=== PATIENT | male | born 1985 | race Caucasian/White ===

== ENCOUNTER 2018-12-16 16:23 | Observation (INO) ==
--- NOTE | 2018-12-16 16:55 | XRay Report ---
SINGLE VIEW CHEST CLINICAL HISTORY: Atypical chest pain. FINDINGS: An AP, portable, upright chest radiograph is obtained. No prior studies are available for c omparison at the time of dictation. The cardiomediastinal silhouette is unremarkable. The lungs and pleural spaces are clear. No pneumothorax is seen. The bony thorax is grossly intact. IMPRESSION: No active disease in the chest. Electronically signed by: Krunal Cedillo M.D. 12/16/2018 4:54 PM
[2018-12-16 17:36] LABS: Basophils # (auto) 0.04 K/uL (0-0.2); Basophils % (auto) 0.4 %; Eosinophils # (auto) 0.22 K/uL (0-0.5); Eosinophils % (auto) 2.1 %; Hematocrit (blood only) 48.6 % (42-52); Hemoglobin 16.6 g/dL (14.0-18.0); Immature Granulocytes # (auto) 0.06 K/uL (0.00-0.02); Immature Granulocytes % (auto) 0.6 %; Lymphocytes # (auto) 2.54 K/uL (1.2-3.4); Lymphocytes % (auto) 24.3 %; Mean Corpuscular Hgb Conc 34.2 g/dL (32-36); Mean Corpuscular Volume 86.6 fL (80-100); Mean Platelet Volume 10.5 fL (7.4-10.4); Monocytes # (auto) 0.73 K/uL (0.11-0.59); Neutrophils # (auto) 6.88 K/uL (1.4-6.5); Neutrophils % (auto) 65.6 %; Platelet Count 250 K/uL (130-400); RDW Standard Deviation 41.4 fL (36.4-46.3); Red Blood Count 5.61 M/uL (4.7-6.1); White Blood Count 10.47 K/uL (4.8-10.8)
[2018-12-16 17:50] LABS: Albumin Level 3.8 gm/dl (3.4-5.0); BUN Creatinine Ratio 13.5 (10-20); Bilirubin,Total 0.2 mg/dl (0.2-1); Calcium 8.9 mg/dl (8.5-10.1); Creatinine Clr Calc Pharmacy 96.1 ml/min; Est GFR (African American) 100.3; Est GFR (Non-African American) 86.5; Globulin 3.7 gm/dl (2.5-4.0); Potassium 3.6 mmol/L (3.5-5.1); Total Protein 7.5 gm/dl (6.4-8.2); Troponin I 0.112 ng/ml (0-0.045)
[2018-12-16] MEDS ORDERED: ASPIRIN CHEW 324 MG PO STA (17:52)
[2018-12-16] MEDS ORDERED: NITROGLYCERIN 2% OINTMENT 30GM TUBE EXT STA (17:58)
--- NOTE | 2018-12-16 18:15 | Emergency Department Note ---
Entered by Sathya Ruiz acting as a scribe for Brock Maloney DO History of Present Illness General Chief complaint: Chest Pain Stated complaint: CHEST PAIN Time Seen by Provider: 12/16/18 16:36 Source: patient History of Present Illness Onset (ago): day(s) 6 Location: chest Radiation: non-radiation Pain Consistency: + other (multiple episodes) Maximum Pain Intensity: 2 Quality: + other (chest tightness) The patient is a 33 year old male who presents to the emergency department with complaints of multiple episodes of chest tightness beginning six days ago. 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 He notes that he felt like he froze his lungs at that time. He reports that his chest tightness feels as though he pulled something but he states that his tightness has not radiated to his arm or neck. He notes that he has a few episodes of chest tightness a day whenever he exerts himself; however, he reports that he had an episode today when he was sitting on the couch. The patient states that his episodes typically last for a few minutes but he notes that his current episode has been constant since 1400. He notes that he has a history of hypertension and he reports that his grandfather of a heart attack. The patient states that his father has a history of hypertension. He notes that he smokes cigarettes. Home Medications Home Medications Medication Instructions Recorded Confirmed Type glucosamine-chondroitin [Osteo 2 tab PO DAILY 12/16/18 12/16/18 History Bi-Flex] lisinopril-hydrochlorothiazide 1 tab PO DAILY 12/16/18 12/16/18 History Allergies Allergy/AdvReac Type Severity Reaction Status Date / Time No Known Allergies Allergy Unverified 12/16/18 17:26 Past Med/Surg History Medical History Hypertension Family History Other Family history of heart attack Family history of hypertension Social History Feels Safe at Home: Yes Smoking Status: Current every day smoker Preferred Language: [place] Review of Systems See HPI for pertinent positives & negatives. and A total of 10 systems reviewed and were otherwise negative Physical Exam Vital Signs Vital Signs - 24 hr 12/16/18 16:25 Temperature 37.0 C Temperature Source Oral Sepsis Recent Fever Within 48 Hours No Sepsis New/Unexplained Change in Mental Status No Sepsis Action Taken by Nursing No Action Required Pulse Rate 76 Pulse Rhythm Regular Pulse Strength Normal Respiratory Rate 20 Respiratory Effort / Characteristics Non-Labored Spontaneous Respiratory Depth Normal Respiratory Pattern Regular Blood Pressure 181/116 H Blood Pressure Mean 137 Blood Pressure Position Sitting Pulse Oximetry 99 Oxygen Delivery Method Room Air CONSTITUTIONAL/VITAL SIGNS: Reviewed / noted above. GENERAL: Non-toxic in appearance. INTEGUMENTARY: Warm, dry, and [place]. HEAD: Normocephalic. EYES: without scleral icterus or trauma. ENT/OROPHARYNX: clear and moist. LYMPHADENOPATHY/NECK: Is supple without lymphadenopathy or meningismus. RESPIRATORY: Lungs clear and equal. CARDIOVASCULAR: Regular rate and rhythm. GI/ABDOMEN: Soft and nontender. No organomegaly or pulsatile mass. No rebound or guarding. Normal bowel sounds. EXTREMITIES: Warm and well perfused. BACK: No CVA tenderness. NEUROLOGICAL: Intact without focal deficits. PSYCHIATRIC: normal affect. MUSCULOSKELETAL: Normally developed with good muscle tone. Course 164: Past medical records reviewed. The patient was evaluated in room C10, and a complete history and physical examination were performed. 1805: Upon reevaluation, the patient is stable. I discussed the results and treatment plan with the patient. He verbalizes understanding and agreement. I discussed the patient's case with Star Riley. The patient will be evaluated for further management and care. Consultations Consultation #1: I reviewed the patient's case with Star Riley. He will evaluate the patient for further management. Time: 18:06 Medical Decision Making Differential Diagnosis Differential diagnosis: Etiologies such as shingles, musculoskeletal pain, pericarditis, myocarditis, cardiac ischemia, pericardial tamponade, pneumonia, pneumothorax, pleural effusion, hemothorax, pleurisy, aortic pathology, pulmonary embolism, intra- abdominal process, as well as others were considered. Medical Records Attestation: I reviewed the patient's medical records. Home Medications Current Medication List: was personally reviewed by me Laboratory Data Attestation: I reviewed the patient's lab results. Result diagrams: 12/16/18 17:11 12/16/18 17:11 Lab Results 12/16/18 12/16/18 12/16/18 Range/Units 17:11 17:11 17:11 WBC 10.47 (4.8-10.8) K/uL RBC 5.61 (4.7-6.1) M/uL Hgb 16.6 (14.0-18.0) g/dL Hct 48.6 (42-52) % MCV 86.6 (80-100) fL MCH 29.6 (25-34) pg MCHC 34.2 (32-36) g/dL RDW Std Deviation 41.4 (36.4-46.3) fL RDW Coeff of Sherri 13.0 (11.5-14.5) % Plt Count 250 (130-400) K/uL MPV 10.5 H (7.4-10.4) fL Immature Gran % (Auto) 0.6 % Neut % (Auto) 65.6 % Lymph % (Auto) 24.3 % [place] % (Auto) 7.0 % Eos % (Auto) 2.1 % Baso % (Auto) 0.4 % Immature Gran # (Auto) 0.06 H (0.00-0.02) K/uL Neut # (Auto) 6.88 H (1.4-6.5) K/uL Lymph # (Auto) 2.54 (1.2-3.4) K/uL [place] # (Auto) 0.73 H (0.11-0.59) K/uL Eos # (Auto) 0.22 (0-0.5) K/uL Baso # (Auto) 0.04 (0-0.2) K/uL D-Dimer < 190 (0-500) ug/L FEU Sodium 138 (136-145) mmol/L Potassium 3.6 (3.5-5.1) mmol/L Chloride 106 (98-107) mmol/L Carbon Dioxide 27 (21-32) mmol/L Anion Gap 5.0 (3-11) BUN 15 (7-18) mg/dl Creatinine 1.10 (0.6-1.4) mg/dl Est Cr Clr Drug Dosing 96.1 ml/min Est GFR ( Amer) 100.3 Est GFR (Non-Af Amer) 86.5 BUN/Creatinine Ratio 13.5 (10-20) Glucose 140 H (70-99) mg/dl Calcium 8.9 (8.5-10.1) mg/dl Total Bilirubin 0.2 (0.2-1) mg/dl AST 20 (15-37) U/L ALT 32 (12-78) U/L Alkaline Phosphatase 70 (45-117) U/L Troponin I 0.112 H* (0-0.045) ng/ml Total Protein 7.5 (6.4-8.2) gm/dl Albumin 3.8 (3.4-5.0) gm/dl Globulin 3.7 (2.5-4.0) gm/dl Albumin/Globulin Ratio 1.0 (0.9-2) Lipase 94 (73-393) U/L Specimen Hemolysis Imaging Data Radiologist's Impression: Radiology results as stated below per my review and the radiologist's interpretation: SINGLE VIEW CHEST FINDINGS: An AP, portable, upright chest radiograph is obtained. No prior studies are available for comparison at the time of dictation. The cardiomediastinal silhouette is unremarkable. The lungs and pleural spaces are clear. No pneumothorax is seen. The bony thorax is grossly intact. IMPRESSION: No active disease in the chest. Electronically signed by: Krunal Cedillo M.D. 12/16/2018 4:54 PM ECG Data Attestation: I personally reviewed and interpreted this ECG as follows: Indication: chest pain Rate (beats per minute): 66 Rhythm: normal sinus Findings: + ST depression (inferiorly) Blood Pressure Blood Pressure Findings: Elevated blood pressure Blood Pressure Disposition: further management by hospitalist FRANDY Arriaga This is a 33-year-old male who presents to the ED with a chief complaint of exertional upper chest tightness over the past week. 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 He states that when he exerts himself heavily, he develops a tightness in the upper chest but no other symptoms. He states that today the symptoms occurred while he was sitting on a couch. He decided to come to the ED for evaluation. The patient states that his symptoms started at 2 PM and have been constant since that time. He does report a history of hypertension and is a smoker but denies any significant family history of cardiac disease. The patient was initially evaluated at urgent care and had a twelve-lead EKG done there. It was unremarkable. The patient was sent here for further evaluation because of an elevated blood pressure. His initial blood pressure here was 181/116. I saw the patient was 147/101. The patient's EKG shows some mild ST depressions in the inferior leads. Troponin was elevated at 0.112. D- dimer was negative. CBC and chemistry panel was unremarkable. Chest x-ray did not show acute process. The patient was started on IV heparin and Nitropaste and given 324 mg of oral aspirin. He will be seen by the hospitalist for further inpatient evaluation and care. Impression & Plan Non-ST elevation [place] (NSTEMI), Angina pectoris, unstable Discharge Plan Visit Data Chief Complaint: Chest Pain Stated Complaint: CHEST PAIN ED Provider: Brock Maloney Discharge Problem: Non-ST elevation [place] (NSTEMI), Angina pectoris, unstable Patient Disposition: Being Evaluated by Hospitalist Condition: Good Forms Stand Alone Forms: Call Back Authorization, [facility] Prescriptions Prescriptions: No Action lisinopril-hydrochlorothiazide 10-12.5 mg Tablet 1 tab PO DAILY RF: 0 glucosamine-chondroitin [Osteo Bi-Flex] 250-200 mg Tablet 2 tab PO DAILY RF: 0 Referrals Referrals: Gwendolyn Carty DO [Primary Care Provider] - The scribe's documentation has been prepared under my direction and personally reviewed by me in its entirety. I confirm that the note above accurately reflects all work, treatment, procedures, and medical decision making performed by me.
[2018-12-16] MEDS ORDERED: HEPARIN 25000 UNIT/500 ML D5W IV ONE (18:32)
[2018-12-16] MEDS ORDERED: HEPARIN SOD 5,000 UNIT/0.5 ML VIAL ONE (18:32)
--- NOTE | 2018-12-16 19:26 | History & Physical Report ---
Date of Service December 16, 2018 Assessment & Plan (1) Chest pain: (2) Non-ST elevation [place] (NSTEMI): Present on admission on admission with chest pain and elevated BP Initial troponin elevated 0.112 Risk factors HTN, tobacco abuse and obesity EKG read by me showed possible mild ST changes inferior lead Already starting on heparin drip in the ER, will continue Aspirin 324 mg given in the ER Will trend troponin, check ECHO in am Repeat EKG, check lipid panel, UDS Cardio consult Will start on aspirn 81mg and low dose Beta raymond since BP elevates as well Will make NPO after midnight for possible cardiac cath in am Will continue monitor in tele (3) Hypertension: BP elevates possible due to hospital setting Continue Lisinopril/HCTZ Will add a low dose of metoprolol (4) Tobacco abuse: Counseling on smoking cessation will start on nicotine patch after r/o ACS (5) Obesity: Counseling on weight loss Diet and exercise DVT px on heparin drip CODE status Full code History of Present Illness Chief Complaint: Chest pain Primary Care Provider: Gwendolyn Carty DO 33 y/o male with PMH of HTN, tobacco abuse, obesity present to the ER with chest pain. Pt said that chest pain starting about 6 days ago. Chest pain occurs with exertion. 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 pain located in the mid sternal area, non radiating, comes and goes. He said that pain feels like a discomfort and worsening with deep breathing and associated with mild SOB. Pain alleviates with resting. Pt said that today chest pain occurs at rest while watching TV and lasted longer for the first time. He said that he went to the urgent care and was sent to the ER. He said that when he lied down for the EKG, he felt a pressure in his chest (occurs both times when he had the EKGs). He said that his grandfather with heart attack at age 45's. Pt said that he continues to smoke daily. Denies any illegal drug use. Currently denies any chest pain, palpitation, dizziness, SOB. Allergies Allergy/AdvReac Type Severity Reaction Status Date / Time No Known Allergies Allergy Unverified 12/16/18 17:26 Home Medications Home Medications Medication Instructions Recorded Confirmed Type glucosamine-chondroitin [Osteo 2 tab PO DAILY 12/16/18 12/16/18 History Bi-Flex] lisinopril-hydrochlorothiazide 1 tab PO DAILY 12/16/18 12/16/18 History Past Med/Surg History Medical History Obesity (Chronic) Tobacco abuse (Chronic) Hypertension (Chronic) Hypertension Family History Other Diabetes mellitus, type 2 Family history of heart attack Family history of hypertension Social History Current Living Situation: Spouse Other Information That Helps Us Care for You: No Feels Safe at Home: Yes Safety Concerns: Feels Safe At This Time Smoking Status: Current every day smoker Tobacco Type: cigarettes Cigarettes per Day: 12 Do You Dip or Chew Tobacco: No Tobacco Cessation Education Requested by Patient: Yes Hx Alcohol Use: Yes Alcohol type: hard liquor Alcohol Intake Frequency: holidays/special occasions only Hx Substance Use: No Beliefs That Will Affect Care: None Preferred Language: Persian Communication Ability: Effective Pattern Drafter Required: Yes Review of Systems All systems reviewed & are unremarkable except as noted in HPI & below Physical Exam 2 Vital Signs (Past 24 Hours): Last Vital Signs Temp 37.0 C 12/16/18 16:25 Pulse 76 12/16/18 19:13 Resp 21 12/16/18 19:13 BP 158/97 H 12/16/18 19:11 Pulse Ox 96 12/16/18 19:13 Physical Exam: General- No acute distress Head- atraumatic Eyes- PERRL, EOMI, ENT- oropharynx clear Neck- supple, no JVD Lungs- clear to auscultation Heart- regular rhythm; no murmur Abdomen- normal bowel sounds, soft, nontender Extremities- no calf tenderness Neuro- alert, oriented x 3; PERRL, EOMI; no facial palsy; no dysarthria Skin- warm & dry Results & Data Diagnostic Findings SINGLE VIEW CHEST CLINICAL HISTORY: Atypical chest pain. FINDINGS: An AP, portable, upright chest radiograph is obtained. No prior studies are available for comparison at the time of dictation. The cardiomediastinal silhouette is unremarkable. The lungs and pleural spaces are clear. No pneumothorax is seen. The bony thorax is grossly intact. IMPRESSION: No active disease in the chest. Electronically signed by: Krunal Cedillo M.D. 12/16/2018 4:54 PM Dictated: 12/16/181653 Transcribed: 12/16/181653
[2018-12-16] MEDS ORDERED: ACETAMINOPHEN 325 MG TAB PO PRN (20:28)
[2018-12-16] MEDS ORDERED: Heparin IV Standard *NO* Bolus ONE (21:30)
[2018-12-16] MEDS: ATORVASTATIN 40 MG TAB PO SCH (22:18)
[2018-12-16] MEDS: METOPROLOL TARTRATE 25 MG TAB PO SCH (22:18)
[2018-12-16] MEDS ORDERED: HEPARIN STANDARD DEXTROSE 25,000 UNITS/500 ML IV SCH (22:46)
[2018-12-17 00:43] LABS: Partial Thromboplastin Ratio 1.7; Partial Thromboplastin Time 43.9 Seconds (21.0-31.0)
[2018-12-17] MEDS ORDERED: HEPARIN IV BOLUS 3,000 UNITS in SYRINGE 0 ML IV ONE (01:00)
[2018-12-17] MEDS ORDERED: SODIUM CHLORIDE 0.9% 1000ML 1,000 ML IV SCH (03:15)
[2018-12-17 07:40] LABS: Estimated Average Glucose 128 mg/dl
[2018-12-17 07:41] LABS: Partial Thromboplastin Ratio 2.1
[2018-12-17 07:45] LABS: BUN Creatinine Ratio 13.8 (10-20); Calcium 8.5 mg/dl (8.5-10.1); Creatinine Clr Calc Pharmacy 108.9 ml/min; Est GFR (African American) 116.7; Est GFR (Non-African American) 100.7; Potassium 3.7 mmol/L (3.5-5.1)
[2018-12-17 07:48] LABS: Partial Thromboplastin Time 55.5 Seconds (21.0-31.0)
[2018-12-17 07:52] LABS: Troponin I 2.19 ng/ml (0-0.045)
[2018-12-17] MEDS ORDERED: Heparin IV Standard *NO* Bolus STA (08:17)
[2018-12-17] MEDS: METOPROLOL TARTRATE 25 MG TAB PO SCH ×2 (08:42→20:03)
[2018-12-17] MEDS: LISINOPRIL/HCTZ 10/12.5MG TAB PO SCH (08:42)
[2018-12-17] MEDS: ASPIRIN 81 MG ECTAB PO SCH (08:42)
[2018-12-17] MEDS: ATORVASTATIN 40 MG TAB PO SCH (08:42)
[2018-12-17] MEDS ORDERED: fentaNYL citrate 100 MCG/2 ML VIAL ONE (09:40)
[2018-12-17] MEDS ORDERED: HEPARIN (PORCINE) 1000 UNIT/ML 10 ML (CATH LAB USE ONLY) ONE (09:40)
[2018-12-17] MEDS ORDERED: NiCARDipine HCL INJ 2.5 MG/ML 10 ML AMP ONE (09:40)
[2018-12-17] MEDS ORDERED: MIDAZOLAM HCL 1 MG/ML 2ML VIAL ONE (09:40)
[2018-12-17] MEDS ORDERED: NITROGLYCERIN/D5W 100MCG/ML 20ML SYR ONE (09:42)
[2018-12-17 10:07] LABS: Amphetamines+Metham, Urine Neg (Neg); Barbiturates, Urine Neg (Neg); Benzodiazepine, Urine Neg (Neg); Cocaine, Urine Neg (Neg); MDMA (Ecstacy), Urine Neg (Neg); Methadone, Urine Neg (Neg); Opiate, Urine Neg (Neg); Phencyclidine, Urine Neg (Neg)
--- NOTE | 2018-12-17 10:21 | Cardiology Consultation ---
Date of Consultation December 17, 2018 Assessment & Plan (1) Non-ST elevation [place] (NSTEMI): Erythrocyte sedimentation rate and low sensitivity C-reactive protein levels were within normal limits. With this in mind, I think the patient's presentation is concerning for a non- ST segment elevation myocardial infarction due to underlying coronary heart disease rather than pericarditis or myopericarditis. Continue medications including aspirin, metoprolol tartrate, atorvastatin, lisinopril/HCTZ, and unfractionated heparin. The case was discussed with Dr. Arias of interventional cardiology, will plan for catheterization this morning. The patient was agreeable to proceeding with cardiac catheterization. (2) Hypertension: Continue metoprolol, lisinopril/HCTZ. (3) Tobacco abuse: Smoking cessation advised. History of Present Illness Attending Physician: Jennifer Hancock MD History of Present Illness Daniel Terrell tobias 33 year old male with a past medical history of cigarette smoking and hypertension. He has been on medication for hypertension for about 4-5 years. He is seen in cardiology consultation per the request of Dr. Hancock for cardiology input regarding suspected diagnosis of non-ST segment elevation myocardial infarction. 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 Part of his route is performed in a vehicle in part on foot. A week ago on Monday he was completing his 5 mile walking route. He noticed that it was cool but not extremely cold. He had midline chest discomfort that waxed and waned with exertion. Monday through he had recurrent mild similar symptoms to a lesser degree. He thought that perhaps he pulled a muscle. Yesterday, Monday, was his day off and were watching television and resting he had recurrence of midline chest discomfort. This prompted him to seek care in the emergency room. Initial EKG revealed very subtle repolarization changes in the inferior leads without significant ST elevation. His initial troponin was mildly elevated at 0.112, and increased to 1.53 and 2.19 on subsequent measurements the most recent of which took place at 6:46 AM this morning. He received aspirin, metoprolol, and atorvastatin and also unfractionated heparin overnight last night. The patient was seen by the undersigned this morning. Telemetry reveals stable sinus rhythm without arrhythmia. He is completely free of symptoms at the present time during my interview with him. PAST MEDICAL HISTORY: Hypertension for which she has been on medications for about 5 years Cigarette smoking, 1/2 pack/day SOCIAL HISTORY: , he anticipates his will visit him later today FAMILY HISTORY: The patient's paternal grandfather suddenly at the age of 48 of a presumed myocardial infarction. His maternal grandfather had a history of coronary heart disease and later in life. No other history of heart disease in his family. Allergies Allergy/AdvReac Type Severity Reaction Status Date / Time No Known Allergies Allergy Unverified 12/16/18 17:26 Home Medications Home Medications Medication Instructions Recorded Confirmed Type glucosamine-chondroitin [Osteo 2 tab PO DAILY 12/16/18 12/16/18 History Bi-Flex] lisinopril-hydrochlorothiazide 1 tab PO DAILY 12/16/18 12/16/18 History Patient History Medical History Obesity (Chronic) Tobacco abuse (Chronic) Hypertension (Chronic) Hypertension Family History Other Diabetes mellitus, type 2 Family history of heart attack Family history of hypertension Social History Current Living Situation: Spouse Other Information That Helps Us Care for You: No Feels Safe at Home: Yes Safety Concerns: Feels Safe At This Time Smoking Status: Current every day smoker Tobacco Type: cigarettes Cigarettes per Day: 12 Do You Dip or Chew Tobacco: No Tobacco Cessation Education Requested by Patient: Yes Hx Alcohol Use: Yes Alcohol type: hard liquor Alcohol Intake Frequency: holidays/special occasions only Hx Substance Use: No Beliefs That Will Affect Care: None Preferred Language: Ukrainian Communication Ability: Effective Internal Salesperson Required: Yes Review of Systems A 10 point review of systems is reviewed and is negative with the exception of that noted above. He specifically notes no recent infectious type symptoms, no fevers or chills. Physical Exam 2 Vital Signs (Past 24 Hours): Last Vital Signs Temp 36.5 C 12/17/18 08:34 Pulse 72 12/17/18 08:34 Resp 18 12/17/18 08:34 BP 131/62 12/17/18 08:34 Pulse Ox 98 12/17/18 08:34 Physical Exam: General: no acute distress and stated age Eyes: conjunctiva are pink and non-injected, sclera clear Neck: normal jugular venous pulse, no hepatojugular reflux Chest: normal shape and normal respiratory effort Lungs: clear to auscultation and percussion Cardiac Exam: - regular heart sounds, no murmurs, rubs, or gallops, no jugular venous distention Abdomen: abdomen soft, non-tender, no abnormal masses and no hepatosplenomegaly Musculoskeletal: no weakness Extremities: no edema and no cyanosis Neuro:awake, coversant, follows commands, no focal motor deficits Psych: appropriate affect and insight. Results & Data Laboratory Results Cardiac Enzymes 12/16/18 12/16/18 12/17/18 Range/Units 17:11 22:46 06:46 AST 20 (15-37) U/L Troponin I 0.112 H* 1.530 H* 2.190 H* (0-0.045) ng/ml Coagulation 12/17/18 12/17/18 Range/Units 00:19 06:46 APTT 43.9 H 55.5 H* (21.0-31.0) Seconds Lipids 12/17/18 Range/Units 06:46 Triglycerides 313 H (0-150) mg/dl Cholesterol 182 (0-200) mg/dl HDL Cholesterol 32 mg/dl Cholesterol/HDL Ratio 6 CBC 12/16/18 Range/Units 17:11 WBC 10.47 (4.8-10.8) K/uL RBC 5.61 (4.7-6.1) M/uL Hgb 16.6 (14.0-18.0) g/dL Hct 48.6 (42-52) % Plt Count 250 (130-400) K/uL Neut # (Auto) 6.88 H (1.4-6.5) K/uL Lymph # (Auto) 2.54 (1.2-3.4) K/uL [place] # (Auto) 0.73 H (0.11-0.59) K/uL Eos # (Auto) 0.22 (0-0.5) K/uL Baso # (Auto) 0.04 (0-0.2) K/uL Comprehensive Metabolic Panel 12/16/18 12/17/18 Range/Units 17:11 06:46 Sodium 138 136 (136-145) mmol/L Potassium 3.6 3.7 (3.5-5.1) mmol/L Chloride 106 103 (98-107) mmol/L Carbon Dioxide 27 26 (21-32) mmol/L BUN 15 13 (7-18) mg/dl Creatinine 1.10 0.97 (0.6-1.4) mg/dl Glucose 140 H 132 H (70-99) mg/dl Calcium 8.9 8.5 (8.5-10.1) mg/dl AST 20 (15-37) U/L ALT 32 (12-78) U/L Alkaline Phosphatase 70 (45-117) U/L Total Protein 7.5 (6.4-8.2) gm/dl Albumin 3.8 (3.4-5.0) gm/dl Intake and Output 12/16/18 12/17/18 12/17/18 22:59 06:59 14:59 Intake Total 125 / 125 52.867 / 52.867 Output Total 300 / 300 Balance 125 / 125 -247.133 / -247.133 Intake: IV 52.867 / 52.867 HEPARIN SODIUM/DEXTROSE 25,000 52.867 / 52.867 units In 500 ml @ 1,450 UNITS/ HR 29 mls/hr IV .[id number] [facility] Rx #:[id number] Oral 125 / 125 Output: Urine 300 / 300 Other: Other Intake Source npo # Unmeasured Voids 1 Weight 88.9 kg 88.9 kg Diagnostic Findings Initial EKG performed 12/16/18 1631 and reviewed independently: Sinus rhythm at 66 bpm, with subtle ST segment depression noted in the inferior leads. EKG 12/17/18 4:11 AM: Normal sinus rhythm at 63 bpm mild ongoing nonspecific changes in the inferior leads without ST elevation. TG 12/17/18 6:28 AM: Normal sinus rhythm 69 bpm, mild J-point elevation limited to 2. Previous ST segment depression leads improved. Echocardiogram performed 12/17/18 reviewed independently: No regional wall motion abnormal is noted. MIld concentric left ventricular hypertrophy is present. Normal biventricular systolic function Quality left ventricular ejection fraction equals 55%. Is no significant valvular heart disease.
--- NOTE | 2018-12-17 10:23 | Pre Anesthesia Assessment ---
Date of Service December 17, 2018 Pre Sedation Assessment Vital Signs Temp Pulse Pulse Resp BP BP Pulse Ox 12/17/18 08:34 36.5 C 72 18 131/62 98 12/17/18 07:00 56 L 12/16/18 23:51 36.6 C 72 18 129/65 97 12/16/18 21:00 36.9 C 81 20 152/81 H 96 12/16/18 20:33 36.9 C 93 H 18 152/81 H 96 12/16/18 20:00 96 H 20 139/82 94 12/16/18 19:30 84 21 135/87 94 12/16/18 19:13 76 21 96 12/16/18 19:11 75 21 158/97 H 94 12/16/18 18:43 71 16 173/103 H 97 12/16/18 17:40 76 16 169/102 H 98 12/16/18 16:25 37.0 C 76 20 181/116 H 99 Cardiovascular RRR, no murmur, no edema Respiratory normal respiratory effort, lungs clear to auscultation Pre-Sedation Airway Assessment Smoking Status: Current every day smoker Hx Sleep Apnea: No Hx Difficult Intubation: No Short, Thick Neck: No Thyromental Distance: > or= 3.5 Finger Breadths Oral Cavity: + WNL Mallampati Class: III Procedure Planning Contraindications for Sedation: none Current Medications Reviewed: Yes Notes The planned sedation has been discussed with the patient. Informed Consent was obtained. I have identified the patient, determined the appropriateness of sedation and have assessed the patient immediately prior to the procedure. All medicine(s) and interventions are by my order.
--- NOTE | 2018-12-17 11:18 | Hospitalist Progress Note ---
Date of Service December 17, 2018 Assessment & Plan (1) Chest pain: (2) Non-ST elevation [place] (NSTEMI): Present on admission with chest pain and elevated BP Troponin trending up 0.112--> 1.53--> 2.19 Risk factors HTN, tobacco abuse and obesity Repeat EKG this morning showed no significant ST changes Received Aspirin 324, Statin and beta raymond yesterday Cardiology on board Plan for cardiac cath this morning Continue statin, metoprolol, aspirin 81mg and heparin drip Echo pending Continue monitor closely in tele Keep NPO for now for the cardiac cath (3) Hypertension: BP stable Continue Lisinopril/HCTZ and metoprolol 12.5 mg BID (4) Tobacco abuse: Counseling on smoking cessation (5) Obesity: Counseling on weight loss Diet and exercise DVT px on heparin drip CODE status Full code Subjective Pt was seen and examined Standing in his room with no distress Pt said that he feels fine He said that he did not have any chest pain since yesterday Denies any palpitation, SOB, dizziness and fever Physical Exam 2 Vital Signs (Past 24 Hours): Last Vital Signs Temp 36.5 C 12/17/18 08:34 Pulse 72 12/17/18 08:34 Resp 18 12/17/18 08:34 BP 131/62 12/17/18 08:34 Pulse Ox 98 12/17/18 08:34 Physical Exam: General- No acute distress Head- atraumatic Eyes- PERRL, EOMI, ENT- oropharynx clear Neck- supple, no JVD Lungs- clear to auscultation Heart- regular rhythm; no murmur Abdomen- normal bowel sounds, soft, nontender Extremities- no calf tenderness Neuro- alert, oriented x 3; PERRL, EOMI; no facial palsy; no dysarthria Skin- warm & dry
--- NOTE | 2018-12-17 11:27 | Post Anesthesia Assessment ---
Date of Service December 17, 2018 Post Sedation Assessment Vital Signs Temp Pulse Pulse Resp BP BP Pulse Ox 12/17/18 08:34 36.5 C 72 18 131/62 98 12/17/18 07:00 56 L 12/16/18 23:51 36.6 C 72 18 129/65 97 12/16/18 21:00 36.9 C 81 20 152/81 H 96 12/16/18 20:33 36.9 C 93 H 18 152/81 H 96 12/16/18 20:00 96 H 20 139/82 94 12/16/18 19:30 84 21 135/87 94 12/16/18 19:13 76 21 96 12/16/18 19:11 75 21 158/97 H 94 12/16/18 18:43 71 16 173/103 H 97 12/16/18 17:40 76 16 169/102 H 98 12/16/18 16:25 37.0 C 76 20 181/116 H 99 Recovery Score Activity: Moves 4 extremities Respiration: Deep Breath/Cough Circulation: +/-20% PreAnes Value Consciousness: Fully Awake Oxygen Saturation: O2 needed for >90% Discharge Sedation Level of Care: Fast Track Phase II Post Sedation Plan On clinical assessment, the patient appears to have tolerated the sedation without complications. Patient is recovering as anticipated. Patient will continue to be monitored by nursing and may be discharged when sedation discharge criteria are met per below protocol. Upon Completions of procedure and additional 15 minutes continue every 5 minute vital signs and the P.A.R. score; then discharge to a Phase I or Fast Track to Phase II per the following guidelines: * Discharge Patient to appropriate Phase II area if PAR is 8 or greater or return to pre- procedure baseline. The post - procedure orders will be as directed. * If PAR score is less than 8 or not return to pre-procedure baseline then patient will follow Phase I monitoring till PAR is reached for Phase II. The Phase I may be done in procedure room or may call to secure a Phase I area. * If naloxone or flumazenil are used for reversal, hold in Phase I for continued monitoring from when last reversal dose was given for a minimum of 60 minutes or longer pending the nurse and/or physician discretion of patient condition before discharge to Phase II. Please call the Sedation Physician to re-evaluate and complete post-note for discharge to Phase II area. Do NOT discharge from procedure sedation or Phase 1 until post- sedation evaluation note is complete by procedure /sedation MD Sedation Discharge Instructions to be given to the patient at discharge to home.
[2018-12-17] MEDS ORDERED: TICAGRELOR 90 MG TAB PO ONE (11:31)
--- NOTE | 2018-12-17 11:39 | Cardiac Catheterization ---
Cardiac Cath Procedure Full Procedure Date December 17, 2018 Pre-Procedure Diagnosis Pre-Procedure Diagnosis: Non STEMI AUC Score AUC Score: 8 Post-Procedure Diagnosis Post-Procedure Diagnosis: Severe CAD, Successful PCI and Normal Intracardiac Pressures Procedure(s) Performed Procedure(s) Performed: Coronary Angiography, Left Heart Cath and Drug Eluting Stent Mattress Specialist Donovan Arias MD Manufacturing Supervisor(s) Hoang Estimated Blood Loss Estimated Blood Loss: None Medication(s) Medication(s): Fentanyl, Heparin, Lidocaine 1%, Nicardipine, Nitroglycerin and Versed Medication(s): Ticagrelor Summary of Findings Indication: High risk NSTEMI Access: 6 [place] slender right radial artery Catheters: [place], JL 3.5, EBU 3.5 guide Findings: LM -angiographically normal LAD -moderate caliber vessel with 50% stenosis involving bifurcation with large second diagonal, distal luminal irregularities as tapers to apex. Second diagonal with proximal 40-50% stenosis Circumflex -moderate caliber vessel, mid and distal luminal irregularities. OM 1 small to moderate caliber with 100% proximal occlusion, distal vessel fills via left to left collaterals OM 2, moderate caliber, 99% acute proximal stenosis RCA -dominant, large caliber vessel, luminal irregularities in right PDA otherwise no significant disease LVEDP -12 -- PCI -- Antithrombotic therapy: Heparin, ticagrelor Procedure: Left main cannulated with EBU 3.5 BMW wire passed across lesion into distal vessel Proximal OM 2 lesion predilated with 2.0 compliant balloon Dilated lesion stented with 2.5 x 15 mm [place] drug-eluting stent Stent post-dilated with 2.5 noncompliant balloon IC vasodilators administered for spasm Post procedure JAQUELINE 3 flow, stent well expanded with minimal residual stenosis and no apparent cardiac complications. Arterial Closure: TR band Summary: 1. Multi-vessel coronary artery disease -99% acute proximal OM 2 (culprit vessel) 100% chronic OM1 with left to left collaterals 50% mid LAD involving bifurcation of second diagonal 2. Normal intracardiac filling pressure 3. Successful PCI of proximal OM 2 with single drug-eluting stent (2.5 x 15 mm [place]). Recommendations: To PCU for continued monitoring Loaded with ticagrelor 180 mg in lab support tech Continue dual-antiplatelet therapy for at least one year Continue statin, and ASCVD risk factor modification Consult cardiac Rehab Hemodynamics Rest Ao:: Final Ao: /73/90 LV: 121/12 Recommendations Recommendations: PCI without planned CABG Specimens Specimens: None Radiation Exposure (mGy) 2735 Contrast (mls) 105 Fluids (cc crystalloids) Fluids (cc crystalloids): 88 Drains Drains: None Anesthesia Moderate Procedural Complication(s) None Disposition PCU ACC Data: Instructional Developer Cardiac Status Clinical evaluation leading to the procedure CAD Presenation: Non STEMI Anginal Classification: CCS IV Heart Failure: No Cardiogenic Shock within 24 Hours: No Cardiac Arrest within 24 Hours: No Imaging Studies Past 6 Months: Yes Stress Studies Past 6 Months: No Diagnostic Physicians Name: Donovan Arias MD Status: Elective Closure Device Percutaneous Entry Location: Radial Closure Device: Radial Band Recommendations: PCI without planned CABG PCI Indication: PCI for high risk Non-EULALIO Lesion Segment Name: Proximal OM 2 Culprit Artery: Yes Stenosis Prior to Rx (%): 99 Chronic Total Occlusion: No IVUS: No FFR: No Pre-Procedure JAQUELINE Flow: 3 Previously Treated Lesion: No Lesion Complexity: Non-High/Non-C Lesion Length (mm): 12 Thrombus Present: Yes Bifurcation Lesion: No Guidewire Across Lesion: Post-Procedure JAQUELINE Flow: 3 Devices(s) Deployed: Yes Yes Intraprocedure Events Significant Disection: No Perforation: No
[2018-12-17] MEDS ORDERED: SODIUM CHLORIDE 0.9% 500 ML IV SCH (12:15)
[2018-12-17 13:48] LABS: Partial Thromboplastin Time 180.9 Seconds (21.0-31.0)
[2018-12-17] MEDS: TICAGRELOR 90 MG TAB PO SCH (20:04)
[2018-12-18] MEDS: TICAGRELOR 90 MG TAB PO SCH (09:02)
[2018-12-18] MEDS: ATORVASTATIN 40 MG TAB PO SCH (09:02)
[2018-12-18] MEDS: METOPROLOL TARTRATE 25 MG TAB PO SCH (09:02)
[2018-12-18] MEDS: LISINOPRIL/HCTZ 10/12.5MG TAB PO SCH (09:03)
[2018-12-18] MEDS: ASPIRIN 81 MG ECTAB PO SCH (09:03)
--- NOTE | 2018-12-18 10:10 | Hospitalist Progress Note ---
Date of Service December 18, 2018 Assessment & Plan (1) Chest pain: (2) Non-ST elevation [place] (NSTEMI): Present on admission with chest pain and elevated BP Troponin trending up 0.112--> 1.53--> 2.19 Risk factors HTN, tobacco abuse and obesity Repeat EKG this morning showed no significant ST changes Received Aspirin 324, Statin and beta raymond yesterday Cardiology on board Plan for cardiac cath this morning Continue statin, metoprolol, aspirin 81mg and heparin drip Echo pending Continue monitor closely in tele Keep NPO for now for the cardiac cath 12/18 S/P day 1 Successful PCI of proximal OM 2 with single drug-eluting stent (2.5 x 15 mm [place]). Multi-vessel coronary artery disease: -99% acute proximal OM 2 (culprit vessel) 100% chronic OM1 with left to left collaterals 50% mid LAD involving bifurcation of second diagonal Continue dual-antiplatelet therapy for at least one year Continue atorvastatin and metoprolol succinate 25mg daily Will need referral for cardiac Rehab Smoking cessation Case discussed with cardiology and OK from from cardiac standpoint to discharge home Will be off from work until clear by cardiology after his follow up appointment Follow up with cardiology (3) Hypertension: BP controlled Continue Lisinopril/HCTZ and metoprolol 12.5 mg BID Monitor BP (4) Tobacco abuse: Counseling on smoking cessation (5) Obesity: Counseling on weight loss Diet and exercise DVT px on heparin d/c CODE status Full code Dispostion Will discharge home today Follow up with cardiology in 1 week Follow up with primary care provider Dr. Nino on 12/24@ 12:45 PM Refer to cardiac rehab Subjective Pt was seen and examined Lying in bed with no distress Pt said that he feels fine He has been walking in the Hallway with no discomfort Denied any chest pain, palpitation, dizziness and SOB Physical Exam 2 Vital Signs (Past 24 Hours): Last Vital Signs Temp 36.8 C 12/18/18 07:05 Pulse 87 12/18/18 07:05 Resp 18 12/18/18 07:05 BP 122/72 12/18/18 07:05 Pulse Ox 96 12/18/18 07:05 Physical Exam: General- No acute distress Head- atraumatic Eyes- PERRL, EOMI, ENT- oropharynx clear Neck- supple, no JVD Lungs- clear to auscultation Heart- regular rhythm; no murmur Abdomen- normal bowel sounds, soft, nontender Extremities- no calf tenderness. right wrist with no hematoma Neuro- alert, oriented x 3; PERRL, EOMI; no facial palsy; no dysarthria Skin- warm & dry
--- NOTE | 2018-12-18 13:28 | Cardiology Progress Note ---
Date of Service December 18, 2018 Assessment & Plan (1) Non-ST elevation [place] (NSTEMI): Patient feels well. No angina. Walking laps in hallway. Cardiac cath with TAM to culprit OM2 stenosis. 100% OM1 chronic with collateral to this territory. Intermediate residual mid LAD stenosis of 50% involving bifurcation of large Diagonal 2 branch, 40-50% Diag 2 stenosis for which medical management recommended. Await results of CBC and metabolic panel. If stable, anticipate discharge today. No significant regional wall motion abnormality noted on his pre-cardiac catheterization echocardiogram, with normal LVEF. No evidence of congestive heart failure. Discharge medications to include aspirin 81 mg daily, metoprolol succinate 25 mg by mouth daily, lisinopril/HCTZ 10/12.5 mg daily, atorvastatin 40 mg by mouth daily. 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 Given his presentation with exertional angina while performing his walking activities and ultimate diagnosis of non-ST segment elevation myocardial infarction coronary artery disease recommend that he is off of work completely for 1 week. Prior to returning he is to have a submaximum exercise stress echocardiogram as an outpatient. Recommend that he is to return to work if the stress test reveals stable findings with plan of "light duty "with 15 pound weight lifting restriction for at least one month. In the meantime he will be enrolled in cardiac rehabilitation. I will arrange outpatient cardiology follow-up and stress testing. (2) Hypertension: Well-controlled at present. Continue prior to hospital dose of lisinopril/HCTZ. Discharge on new dose of metoprolol succinate 25 mg by mouth daily in the morning. (3) Tobacco abuse: Smoking cessation advised. Patient states he is committed to this. He has been able to quit in the past for brief periods using nicotine patch. We discussed medications including Wellbutrin and Chantix. These of course have their own side effects. I recommended that quitting cold turkey, or perhaps quitting with the assistance of a nicotine patch would be ideal. Of course nicotine replacement is not the most ideal situation given his recent HI and coronary disease, but I think supplement nicotine patch poses less long- term risk than smoking in the long-term. I told him that he can use over-the- counter nicotine patches as directed if necessary. He states he has some at home. (4) Dyslipidemia: Dischargedon atorvastatin 40 mg daily, LDL cholesterol is 87 mg/dL at baseline. Subjective Chief complaint: Follow-up chest pain, non-ST segment elevation myocardial infarction Subjective: Patient feels well. Tolerated cardiac catheterization well, right radial access site clean dry and intact with minimal ecchymosis. Telemetry reveals stable sinus rhythm in the range of 60-70 bpm. Repeat EKG performed today 12/18/18 at 1233 reveals normal sinus rhythm at 61 bpm. Compared to his initial EKG when he presented to the emergency room, the very subtle inferior ST changes have resolved. Review of Systems All systems reviewed & are unremarkable except as noted in HPI & below Physical Exam 2 Vital Signs (Past 24 Hours): Last Vital Signs Temp 36.6 C 12/18/18 11:01 Pulse 72 12/18/18 11:01 Resp 18 12/18/18 11:01 BP 120/77 12/18/18 11:01 Pulse Ox 98 12/18/18 11:01 Physical Exam: General: no acute distress and stated age Eyes: conjunctiva are pink and non-injected, sclera clear Neck: normal jugular venous pulse, no hepatojugular reflux Chest: normal shape and normal respiratory effort Lungs: clear to auscultation and percussion Cardiac Exam: - regular heart sounds, no murmurs, rubs, or gallops, no jugular venous distention Abdomen: abdomen soft, non-tender, no abnormal masses and no hepatosplenomegaly Extremities: no edema and no cyanosis -Right radial artery access site, clean dry and intact, minimal ecchymosis, no stigmata of peripheral embolic phenomenon Neuro:awake, coversant, follows commands, no focal motor deficits Psych: appropriate affect and insight. Results & Data Laboratory Results Coagulation 12/17/18 Range/Units 12:50 APTT 180.9 H* (21.0-31.0) Seconds Intake and Output 12/17/18 12/18/18 12/18/18 22:59 06:59 14:59 Intake Total 1085 / 1085 200 / 200 Output Total 900 / 900 600 / 600 Balance 185 / 185 -400 / -400 Intake: IV 500 / 500 Nss 500 ml @ 100 mls/hr IV .Q5H 500 / 500 TRACY Rx#:[id number] Oral 585 / 585 200 / 200 Output: Urine 900 / 900 600 / 600 Other: Weight 88 kg Diagnostic Findings labs pending.
[2018-12-18 13:50] LABS: Hematocrit (blood only) 46.9 % (42-52); Hemoglobin 16.3 g/dL (14.0-18.0); Mean Corpuscular Volume 86.4 fL (80-100); Mean Platelet Volume 10.4 fL (7.4-10.4); Platelet Count 249 K/uL (130-400); RDW Coefficient of Variation 13.1 % (11.5-14.5); RDW Standard Deviation 41.3 fL (36.4-46.3); Red Blood Count 5.43 M/uL (4.7-6.1); White Blood Count 14.49 K/uL (4.8-10.8)
[2018-12-18 13:53] LABS: Mean Corpuscular Hgb Conc 34.8 g/dL (32-36)
[2018-12-18 13:59] LABS: BUN Creatinine Ratio 13.4 (10-20); Creatinine Clr Calc Pharmacy 100.1 ml/min; Est GFR (African American) 106.1; Est GFR (Non-African American) 91.5; Potassium 3.6 mmol/L (3.5-5.1)
[2018-12-19] MEDS ORDERED: METOPROLOL SUCC 25MG EXT REL TAB PO SCH (09:00)
--- NOTE | 2018-12-21 00:06 | Discharge Summary ---
Date of Service December 21, 2018 Admission HPI Per Admitting Provider 33 y/o male with PMH of HTN, tobacco abuse, obesity present to the ER with chest pain. Pt said that chest pain starting about 6 days ago. Chest pain occurs with exertion. 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 pain located in the mid sternal area, non radiating, comes and goes. He said that pain feels like a discomfort and worsening with deep breathing and associated with mild SOB. Pain alleviates with resting. Pt said that today chest pain occurs at rest while watching TV and lasted longer for the first time. He said that he went to the urgent care and was sent to the ER. He said that when he lied down for the EKG, he felt a pressure in his chest (occurs both times when he had the EKGs). He said that his grandfather with heart attack at age 45's. Pt said that he continues to smoke daily. Denies any illegal drug use. Currently denies any chest pain, palpitation, dizziness, SOB. Admission Exam Per Admitting Provider General- No acute distress Head- atraumatic Eyes- PERRL, EOMI, ENT- oropharynx clear Neck- supple, no JVD Lungs- clear to auscultation Heart- regular rhythm; no murmur Abdomen- normal bowel sounds, soft, nontender Extremities- no calf tenderness Neuro- alert, oriented x 3; PERRL, EOMI; no facial palsy; no dysarthria Skin- warm & dry Principal Diagnosis Non-ST elevation [place] (NSTEMI) Chest pain Hypertension Tobacco abuse Discharge Exam General- No acute distress Head- atraumatic Eyes- PERRL, EOMI, ENT- oropharynx clear Neck- supple, no JVD Lungs- clear to auscultation Heart- regular rhythm; no murmur Abdomen- normal bowel sounds, soft, nontender Extremities- no calf tenderness. right wrist with no hematoma Neuro- alert, oriented x 3; PERRL, EOMI; no facial palsy; no dysarthria Skin- warm & dry Discharge Data Allergies Allergy/AdvReac Type Severity Reaction Status Date / Time No Known Allergies Allergy Unverified 12/16/18 17:26 Consultations 12/16/18 18:02 ED Decision to Admit Stat 12/16/18 20:28 Consult Cardiology Routine Procedures Performed Operation Date: 12/17/18 09:30 Actual Procedures s Cineradiography w/Routine Exam - Twan Arias MD p Cath, Left with Cors and Vent - Twan Arias MD s Drug Eluting Stent SGl Vessel - Twan Arias MD Ordered Studies 12/17/18 09:41 CL Cath Imgs for PACS use only Routine Hospital Course (1) Chest pain: (2) Non-ST elevation [place] (NSTEMI): Present on admission with chest pain and elevated BP Troponin trending up 0.112--> 1.53--> 2.19 Risk factors HTN, tobacco abuse and obesity Repeat EKG this morning showed no significant ST changes Received Aspirin 324, Statin and beta raymond yesterday Cardiology on board Plan for cardiac cath this morning Continue statin, metoprolol, aspirin 81mg and heparin drip Echo pending Continue monitor closely in tele Keep NPO for now for the cardiac cath 12/18 S/P day 1 Successful PCI of proximal OM 2 with single drug-eluting stent (2.5 x 15 mm [place]). Multi-vessel coronary artery disease: -99% acute proximal OM 2 (culprit vessel) 100% chronic OM1 with left to left collaterals 50% mid LAD involving bifurcation of second diagonal Continue dual-antiplatelet therapy for at least one year Continue atorvastatin and metoprolol succinate 25mg daily Will need referral for cardiac Rehab Smoking cessation Case discussed with cardiology and OK from from cardiac standpoint to discharge home Will be off from work until clear by cardiology after his follow up appointment Follow up with cardiology (3) Hypertension: BP controlled Continue Lisinopril/HCTZ and metoprolol 12.5 mg BID Monitor BP (4) Tobacco abuse: Counseling on smoking cessation (5) Obesity: Counseling on weight loss Diet and exercise DVT px on heparin d/c CODE status Full code Dispostion Will discharge home today Follow up with cardiology in 1 week Follow up with primary care provider Dr. Nino on 12/24@ 12:45 PM Refer to cardiac rehab Total Time Total Time Spent Total Time Spent (In Minutes): 38 minutes Total Time Includes: Examination of the Patient, Discharge Planning, Medication Reconciliation, Communication With Other Providers and Other Discharge Plan Discharge Items Patient Disposition: Home - Self-Care Reason For Visit: CHEST PAIN Discharge Diagnosis: Non-ST elevation [place] (NSTEMI) Chest pain Hypertension Tobacco abuse Condition: Good Discharge Goals: Decrease discomfort, Improve disease control, Improve function and Increase independence Activity: Resume your previous activity Activity Comment: as tolerated Non-emergency contact: Primary Care Provider and Manager Administrative Services Call non-emergency contact if: you have any medication questions Diet: Heart Healthy Addtl Provider Instructions: Follow up with your primary care provider Dr. Nino on 12/24 @ 12:45 Follow up with cardiology Dr. Moreira in 1 week (cardiology's office will contact you for the appointment) Need referral to cardiac rehab (Cardiology will arrange it ) Counseling on smoking cessation Monitor your blood pressure You will be off from work until your next follow up appointment with your cardiology. 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 Keep the area for the cardiac cath clean and dry to avoid any infection Do not use creams, lotions or ointment on the wound site Do not take a bath, tub soak, go in a Jacuzzi, or swim in a pool or [place]donado for one week after the procedure. Do not participate in strenuous activities for 3 days after the procedure. Gradually increase your activities until you reach your normal activity level within two days after the procedure. Avoid heavy lifting (more than 10 pounds) and pushing or pulling heavy objects for the first 5 days after the procedure. Prescriptions: New atorvastatin 40 mg Tablet 40 mg PO QAM 30 Days Qty: 30 RF: 0 aspirin [Ecotrin Low Strength] 81 mg Tablet,Delayed Release (Dr/Ec) 81 mg PO QAM 30 Days Qty: 30 RF: 0 metoprolol succinate 25 mg Tablet Extended Release 24 Hr 25 mg PO QAM 30 Days Qty: 30 RF: 0 ticagrelor [Brilinta] 90 mg Tablet 90 mg PO BID 30 Days Qty: 60 RF: 0 Continue lisinopril-hydrochlorothiazide 10-12.5 mg Tablet 1 tab PO DAILY RF: 0 glucosamine-chondroitin [Osteo Bi-Flex] 250-200 mg Tablet 2 tab PO DAILY RF: 0 Stand-Alone Forms: [employer]/Other Patient Handouts: Ticagrelor Oral tablet, Heart Attack Sx, Stent Coronary Discharge Orders: Discharge Order (Routine); Ordered 12/18/18 Ordered By: Jennifer Hancock Admission Data Admit Date/Time: 12/16/18 19:36 Attending Provider: Jennifer Hancock Admit Provider: Jennifer Hancock Primary Care Provider: Gwendolyn Carty Other Providers: Jennifer Hancock ; Nestor Moreira Service: Telemetry Other Interventions: Discharge Summary Assessment (RN) Last Done: 12/18/18 15:53 DC Date/Time DO NOT enter until pt leaves facility: 12/18/18 16:41
== END 2018-12-18 16:41 | disposition home or self-care (01) ==
LOC: 2S 16:23 → ED 16:23 → 2S 20:05